=== PATIENT | female | born 1965 | race African-American/Black ===

== ENCOUNTER 2016-12-18 13:30 | Emergency (ER) | payer MEDICAID ==
[~2016-12-18] VITALS: Ht 162.6 cm; Wt 68.0 kg
[2016-12-18 16:00] VITALS: BP 150/87
[2016-12-18] MEDS ORDERED: CLINDAMYCIN HCL 150MG CAPSULE PO ONE (16:00)
[2016-12-18] MEDS ORDERED: KETOROLAC 60MG/2ML VIAL IM ONE (16:00)
== END 2016-12-18 16:41 | disposition home or self-care (01) ==
LOC: ER 13:49
DX: K08.89 Other specified disorders of teeth and supporting structures (principal); H92.01 Otalgia, right ear; I10 Essential (primary) hypertension; J45.909 Unspecified asthma, uncomplicated; F17.210 Nicotine dependence, cigarettes, uncomplicated; F12.10 Cannabis abuse, uncomplicated; Z86.73 Personal history of transient ischemic attack (TIA), and cerebral infarction without residual deficits; Z88.0 Allergy status to penicillin
CPT/HCPCS: 96372; 99283; J1885

== ENCOUNTER 2017-01-16 07:03 | Emergency (ER) | payer MEDICAID, MEDICARE ==
[~2017-01-16] VITALS: Ht 162.6 cm; Wt 61.0 kg
[2017-01-16] MEDS ORDERED: KETOROLAC 60MG/2ML VIAL IM ONE (09:15)
[2017-01-16 09:42] VITALS: BP 178/107
== END 2017-01-16 10:49 | disposition home or self-care (01) ==
LOC: ER 09:14
DX: M70.842 Other soft tissue disorders related to use, overuse and pressure, left hand (principal); S80.01XA Contusion of right knee, initial encounter; I10 Essential (primary) hypertension; F12.10 Cannabis abuse, uncomplicated; Z88.0 Allergy status to penicillin; J45.909 Unspecified asthma, uncomplicated; W22.8XXA Striking against or struck by other objects, initial encounter; Y93.89 Activity, other specified; Y92.018 Other place in single-family (private) house as the place of occurrence of the external cause
CPT/HCPCS: 73140; 73562; 96372; 99284; J1885; Z7610

== ENCOUNTER 2017-01-31 12:00 | Emergency (ER) | payer MEDICARE ==
[~2017-01-31] VITALS: Ht 160 cm; Wt 80.0 kg
[2017-01-31] MEDS ORDERED: MORPHINE SULFATE 4 MG/ML CPJ (NOT FOR IM USE) IV STA (16:45)
[2017-01-31] MEDS ORDERED: BACITRACIN ZINC OINT UDPKT TOP ONE (16:45)
[2017-01-31] MEDS ORDERED: LIDOCAINE HCL 1% 20ML VIAL (Pyxis) INJ INFIL ONE (16:45)
[2017-01-31 17:23] LABS: CHLORIDE 108 mEq/L (98-107)
[2017-01-31 17:29] LABS: CARBON DIOXIDE 24 mEq/L (21-32)
[2017-01-31] MEDS ORDERED: DIPHENHYDRAMINE 50MG/ML VIAL IV ONE (17:30)
[2017-01-31 17:31] LABS: HEMATOCRIT 41.5 % (36.0-48.0); HEMOGLOBIN 13.7 g/dL (12.0-16.0); MEAN CORPUSCULAR HEMOGLOBIN 29.8 pg (28.0-32.0); MEAN CORPUSCULAR VOLUME 90.3 fL (81.0-99.0); PLATELET 346 x1000/uL (130-400); RED CELL DISTRIBUTION WIDTH 14.3 % (11.6-14.6)
[2017-01-31] MEDS ORDERED: KETOROLAC 30MG/ML VIAL IV ONE (18:45)
[2017-01-31 18:57] VITALS: BP 161/80
== END 2017-01-31 19:06 | disposition short-term general hospital (02) ==
LOC: ER 15:36
DX: L02.512 Cutaneous abscess of left hand (principal); Z88.0 Allergy status to penicillin; J45.909 Unspecified asthma, uncomplicated; I10 Essential (primary) hypertension; F17.200 Nicotine dependence, unspecified, uncomplicated
CPT/HCPCS: 26010; 36415; 73130; 80048; 85027; 96374; 96375; 99285; J1200; J1885; J2270; J3490; Z7610